=== PATIENT | female | born 1970 | race Caucasian/White ===

== ENCOUNTER → 2019-05-13 | Outpatient (CLI) | payer BC ==
--- NOTE | 2019-05-14 11:04 | RAD ---
EXAM DESCRIPTION: Lumbar Spine 3 Views CLINICAL HISTORY: RADICULOPATHY LUMBAR COMPARISON: None Available. TECHNIQUE: AP/lateral/coned-down lateral views lumbar spine. FINDINGS: Conventional five nonrib-bearing lumbar segments. The lumbar spine alignment is intact without significant listhesis. The vertebral body heights are relatively maintained. No displaced fracture or significantly appearing subluxation is seen. Mild to moderate multilevel degenerative changes with intervertebral disc height loss, endplate sclerosis and marginal osteophyte are most pronounced at L1-L2 and L2-L3. Mild lower lumbar spine facet degeneration. IMPRESSION: 1. No radiographic evidence of displaced lumbar spine fracture or significantly appearing subluxation. 2. Mild to moderate multilevel lumbar spine degenerative changes. Electronically signed by: Dell Cha DO 05/14/2019 11:02 AM CDT
== END ==
LOC: RAD 13:00
PROVIDERS: ATTEND Chiropractor
DX: M47.26 Other spondylosis with radiculopathy, lumbar region (principal)

== ENCOUNTER → 2019-06-23 | Outpatient (CLI) | payer OTHER ==
--- NOTE | 2019-06-24 09:02 | MRI ---
EXAM DESCRIPTION: MRI left knee CLINICAL HISTORY: ACL tear. Knee pain. COMPARISON: None. TECHNIQUE: Multiplanar, multisequence MR images of the left knee FINDINGS: Intraligamentous thin tubular ganglion within the ACL is evidence of remote interstitial low-grade partial tear. Small region of cystic change in the tibia at the ACL attachment. No acute ACL tear or ligament laxity PCL, MCL and fibular collateral ligaments are intact Biceps femoris, popliteus iliotibial band tendons are normal. Extensive subcutaneous soft tissue edema and swelling along the anterior lateral knee overlying the lateral retinaculum and iliotibial band primarily, soft tissue contusion without underlying ligament retinacular tear. Patellar and quadriceps tendons are normal Lateral patellar diffuse grade 3 chondrosis with grade 4/full-thickness chondrosis over about 1.5 x 1 cm. Underlying small region of subchondral cystic change and edema. Femoral trochlear chondral thinning along the lower apex and medial facet without full-thickness defect or subchondral marrow abnormality No medial meniscal tear. Medial femorotibial diffuse chondral thinning and mild surface irregularity. No full-thickness defect or subchondral marrow abnormality. Focal well delineated full-thickness chondral defect of the posterior weightbearing lateral femoral condyle over 9 x 6 mm. No subchondral marrow abnormality, coronal image 22, sagittal image 10. Diffuse grade 3 chondrosis of the middle and lateral posterior tibia with grade 4 chondral loss over approximately 8 x 9 mm. Subtle minimal subchondral edema. Mild lateral subluxation of the body the meniscus without a focal tear. Degenerative signal in the anterior tibial root attachment Tendons of the posterior medial knee are intact. Minimal/physiologic joint fluid. No intra-articular loose body IMPRESSION: Thin intraligamentous ganglion of the ACL as evidence of prior remote interstitial low-grade partial tear. 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
== END ==
LOC: MRI 12:58
PROVIDERS: ATTEND Nurse Practitioner
DX: M23.612 Other spontaneous disruption of anterior cruciate ligament of left knee (principal); M67.462 Ganglion, left knee; M94.8X6 Other specified disorders of cartilage, lower leg

== ENCOUNTER 2019-07-28 16:07 | Emergency (ER) | payer OTHER ==
[2019-07-28 16:20] VITALS: O2SAT 99
--- NOTE | 2019-07-28 16:20 | ED.PDOC ---
History of Present Illness - General Chief Complaint: Lower Extremity Injury Stated Complaint: left leg pain Time Seen by Provider: 07/28/19 16:13 Source: patient, RN notes reviewed, Vital Signs reviewed Exam Limitations: no limitations Additional Information: this is a 48-year-old female who presents to the ED with complaints of left knee pain. She has some chronic history of left knee pain and is scheduled to see Dr. Brewer out of [facility] for possible surgery next week. She states that she has an appointment next Friday. She had a recent MRI in the past month of the left knee revealing a remote ACL tear but nothing acute, as well as arthritic characteristics of the knee. She states that Dr. Brewer feels that she needs to have a knee replacement. She also states that she has a history of rheumatoid arthritis but is not on any treatment. She states that she was on methotrexate years ago but feels that due to the carcinogenic properties of arthritis medications she does not want to be on any. The patient reports that she was awakened with left knee pain in the photography spotter hours this morning. She denies having any trauma. She has been using a knee brace on the left knee and came in on crutches today. She is taking tramadol and Tylenol 3 with no relief. She denies having any recent fever or chills. No GI symptoms. - History of Present Illness Allergies/Adverse Reactions: Allergies Hydrocodone Allergy (Verified 07/28/19 16:13) Home Medications: Ambulatory Orders predniSONE 40 mg PO Q24HR #5 tab 07/28/19 Review of Systems - Review of Systems Constitutional: States: no symptoms reported. Denies: chills, fever Respiratory: States: no symptoms reported Cardiology: States: no symptoms reported Gastrointestinal/Abdominal: States: no symptoms reported Musculoskeletal: States: joint pain - left knee only, joint swelling Skin: States: no symptoms reported. Denies: change in color, rash Neurological: States: no symptoms reported Endocrine: States: no symptoms reported All other Systems: Reviewed and Negative Family Medical History - Family History Mother Family History: No Known Physical Exam - Physical Exam General Appearance: Alert, Anxious, Restless, Other - holding left knee, knee brace is off and crutches were used at time of presentation, Eyes, Ears, Nose, Throat: PERRL/EOMI Cardiovascular/Respiratory: no respiratory distress Leg: normal inspection, non-tender, no evidence of injury Knee: no evidence of injury, bone tenderness, limited ROM - limited flexion, feels best in extension, some increased warmth noted, no redness, no effusion is present, , pain, swelling Ankle: normal inspection, non-tender, no evidence of injury, normal ROM Foot: normal inspection, non-tender, no evidence of injury, normal ROM Neuro/Tendon: normal sensation Mental Status: alert, oriented x 3 Skin: normal color, warm/dry Progress - Progress Progress: 07/28/19 17:01 MDM: Patient with reported history of rheumatoid arthritis. Started having left knee pain out of the ordinary in the photography spotter hours without any trauma. May be all inflammatory in nature. She has been taking her pain relievers without much relief. We'll go ahead and start with steroids and give Toradol as well. She will have a sedimentation rate performed so that she can follow-up with her orthopedist and get a comparison if it is high. Would recommend follow-up with a PCP for further rheumatologic workup and treatment. 07/28/19 17:51 discussed results with the patient. She does not have a ride here. States that her pain is not a lot better currently. We cannot give her anything stronger without her having someone to drive her home. She understands that. She has a follow-up with her orthopedist next week and let him know about her sedimentation rate as well. We are going to continue with prednisone treatment to see if that will make a difference for her with the lack of trauma being involved and her pain increasing. No signs or symptoms of a septic joint. - Results/Orders Results/Orders: Laboratory Tests 07/28/19 16:37 ESR 3 Departure - Departure Clinical Impression: Knee pain, chronic Qualifiers: Laterality: left Qualified Code(s): M25.562 - Pain in left knee; G89.29 - Other chronic pain Time of Disposition: 17:53 Disposition: Discharge to Home or Self Care Condition: Good Departure Forms: ED Discharge - Pt. Copy, Patient Portal Self Enrollment Instructions: DI for Knee Pain Referrals: SABINO GILLILAND JR [Primary Care Provider] - 1-2 Weeks Prescriptions: predniSONE 40 mg PO Q24HR #5 tab Home Medications: Ambulatory Orders predniSONE 40 mg PO Q24HR #5 tab 07/28/19 Additional Instructions: keep follow-up with orthopedist. Would recommend to continue brace and crutches. Also continue tramadol and Tylenol 3 for pain control. Use prednisone as directed. Return to ED as needed. Would recommend a project management analyst if having to return.
[2019-07-28] MEDS ORDERED: KETOROLAC TROMETHAMINE INJ 60 MG/2 ML VIAL IM ONE (16:28)
[2019-07-28] MEDS ORDERED: predniSONE 20 MG TAB PO ONE (16:29)
[2019-07-28 18:11] VITALS: BP 128/81; TEMP 97
== END 2019-07-28 18:00 | disposition home or self-care (01) ==
LOC: ER 16:07
DX: M25.562 Pain in left knee (principal); G89.29 Other chronic pain; M06.9 Rheumatoid arthritis, unspecified; Z88.8 Allergy status to other drugs, medicaments and biological substances
CPT/HCPCS: 36415; 85651; J1885; J7512

== ENCOUNTER 2019-10-24 14:40 | Emergency (ER) | payer BC, OTHER ==
[2019-10-24] MEDS: SODIUM CHLORIDE 0.9% (FLUSH) 10 ML SYG IV PRN (15:25)
--- NOTE | 2019-10-24 15:34 | RAD ---
EXAM: Chest,1 View CLINICAL INDICATION: Weakness COMPARISON: There is no previous study for comparison. FINDINGS: A single view of the chest was obtained. The heart size is normal. The pulmonary vascularity is unremarkable. The lungs are clear. There is no consolidation, infiltrate, pleural effusion, or pneumothorax. IMPRESSION: No evidence of active pulmonary disease. Electronically signed by: Gabe Hernandez MD 10/24/2019 3:33 PM [facility]
--- NOTE | 2019-10-24 16:06 | ED.PDOC ---
History of Present Illness - General Chief Complaint: General Stated Complaint: weakness,dizziness,pain all over Time Seen by Provider: 10/24/19 14:41 Source: patient, RN notes reviewed, Vital Signs reviewed, family - Hand Model, RN/MD - Dr. Garcia her PCP, old records - Per Dr. Garica, her SOFIA was 1: 2000 - History of Present Illness Initial Comments: Patient is a 48-year-old white female who presents with generalized pain and weakness and an inability to care for herself at all. Patient has past medical history of lupus and they believe MS. Approximately 3 weeks ago patient had worsening strokelike symptoms and went to [place] for further evaluation and treatment. 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 Patient symptoms resolved in the hospital but she continued to be weak. After discharge she came back to [place] and has continued to decline. Patient complains of an aching burning pain all over her body and complete weakness of her upper extremities and lower extremities. Patient denies any difficulty breathing at this time. Patient denies any headaches, chest pain, shortness of breath, nausea, vomiting, diarrhea. Patient also denies any vaginal discharge or urinary pain. Timing/Duration: other - 3 weeks Severity: severe Improving Factors: nothing Worsening Factors: movement Associated Symptoms: loss of appetite, malaise, weakness Allergies/Adverse Reactions: Allergies NO KNOWN ALLERGY Allergy (Verified 10/24/19 15:15) Home Medications: Ambulatory Orders Alprazolam [Xanax] 1 mg PO TID 10/24/19 Aspirin [Aspirin Regular Strength] 325 mg PO DAILY 10/24/19 Atorvastatin Calcium [Lipitor] 20 mg PO BEDTIME 10/24/19 DULoxetine HCL [Cymbalta] 30 mg PO DAILY 10/24/19 HYDROcodone 10MG/APAP 325MG [[place] 10/325] 1 tab PO PRN 10/24/19 Levothyroxine Sodium 125 mcg PO DAILY 10/24/19 Pregabalin 75 mg PO BID 10/24/19 Tramadol HCl 1 - 2 mg PO BID PRN 10/24/19 Review of Systems - Review of Systems Constitutional: States: see HPI, malaise, weakness. Denies: chills, fever EENTM: States: see HPI, blurred vision. Denies: double vision, ear pain, nose congestion, throat pain, throat swelling Respiratory: States: see HPI, short of breath. Denies: cough, orthopnea, stridor, wheezing Cardiology: States: no symptoms reported. Denies: chest pain, palpitations, syncope Gastrointestinal/Abdominal: States: no symptoms reported. Denies: abdominal pain, constipation, diarrhea, nausea, vomiting Genitourinary: States: no symptoms reported. Denies: discharge, dysuria, frequency, pain Musculoskeletal: States: see HPI, back pain, joint pain, muscle pain, muscle stiffness. Denies: neck pain Skin: States: no symptoms reported. Denies: change in color, lumps, rash Neurological: States: see HPI, anxiety, numbness, tingling, weakness. Denies: pre-existing deficit Endocrine: States: no symptoms reported. Denies: flushing, intolerance to cold, intolerance to heat, increased hunger, increased thirst, increased urine, unexplained weight gain, unexplained weight loss Hematologic/Lymphatic: States: no symptoms reported. Denies: anemia, easy bleeding, easy bruising All other Systems: Reviewed and Negative Past Medical History (General) - Patient Medical History Hx Seizures: No Hx Stroke: No Hx Asthma: No Hx Congestive Heart Failure: No Hx Thyroid Disease: Yes Hx Diabetes: No Surgical History: Hysterectomy - Vaccination History Hx Influenza Vaccination: No Hx Pneumococcal Vaccination: No - Social History Hx Tobacco Use: Yes Family Medical History - Family History Mother Family History: No Known Physical Exam - Physical Exam General Appearance: Alert, Anxious, Obvious distress, Restless, Well Developed, Well Groomed, Well Hydrated, Well Nourished Eye Exam: bilateral normal Ears, Nose, Throat: hearing grossly normal, normal ENT inspection, normal pharynx Neck: non-tender, full range of motion, supple, normal inspection, other - Patient has a well-healed scar on the right neck. Respiratory: chest non-tender, lungs clear, normal breath sounds, no respiratory distress, no accessory muscle use Cardiovascular/Chest: normal peripheral pulses, regular rate, rhythm, no edema, no gallop, no JVD, no murmur Peripheral Pulses: radial,right: 2+, radial,left: 2+ Gastrointestinal/Abdominal: normal bowel sounds, non tender, soft, no organomegaly, no pulsatile mass Back Exam: normal inspection, no CVA tenderness, no vertebral tenderness Extremity: normal range of motion, normal inspection, no pedal edema, no calf tenderness, normal capillary refill, other - Generalized tenderness of her extremities. 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 10/24/19 17:36 Patient with continued generalized weakness and body aches. After discussion with Dr. Garcia, plan was made to transfer the patient to [facility] for further work-up by rheumatology, to include a possible MRI. I have discussed this with the patient and she voices understanding and agreement with the plan of care. Patient was accepted by Dr. Rodriguez. Plan transfer at this time. Theo Boss M.D. #[id number] - Results/Orders Results/Orders: 10/24/19 15:18 Sodium Chloride 0.9% (Flush) [Saline Flush Syringe] 3 ml IV PRN PRN 10/24/19 15:19 Pulse Oximetry Assessment DAILY 10/24/19 15:30 EKG STAT 10/24/19 17:13 Sodium Chloride 0.9% 1000ML [Ns 1000 ml] 1,000 ml IVS ONCE 10/25/19 09:00 Pulse Ox Daily Laboratory Results - last 24 hr 10/24/19 10/24/19 10/24/19 15:24 15:30 15:30 WBC 6.9 RBC 4.06 L Hgb 12.1 Hct 36.1 MCV 89.0 MCH 30.0 MCHC 33.7 RDW 12.4 Plt Count 294 MPV 8.6 Absolute Neuts (auto) 5.00 Absolute Lymphs (auto) 1.40 Absolute Monos (auto) 0.40 Absolute Eos (auto) 0.10 Absolute Basos (auto) 0.10 Neutrophils % 72.6 Lymphocytes % 20.0 Monocytes % 5.7 Eosinophils % 0.8 L Basophils % 0.9 ESR 16 PT 9.9 INR 1.00 PTT (SP) 25.4 Sodium 136 Potassium 3.5 L Chloride 103 Carbon Dioxide 24 Anion Gap 12.5 BUN 25 H Creatinine 0.56 L BUN/Creatinine Ratio 44.6 H Random Glucose 118 H Serum Osmolality 277.4 Calcium 9.4 Magnesium 1.9 Total Bilirubin 0.7 Direct Bilirubin < 0.1 Indirect Bilirubin 0.6 AST 22 ALT 27 Alkaline Phosphatase 80 Creatine Kinase 68 CK-MB (CK-2) 2.6 CK-MB (CK-2) % Not Reportable Troponin I < 0.02 C-Reactive Protein 0.5 Serum Total Protein 7.0 Albumin 3.9 Urine Color Urine Appearance Urine pH Ur Specific [place] Urine Protein Urine Glucose (UA) Urine Ketones Urine Blood Urine Nitrite Urine Bilirubin Urine Urobilinogen Ur Leukocyte Esterase Urine RBC Urine WBC Ur Epithelial Cells Urine Bacteria 10/24/19 16:06 WBC RBC Hgb Hct MCV MCH MCHC RDW Plt Count MPV Absolute Neuts (auto) Absolute Lymphs (auto) Absolute Monos (auto) Absolute Eos (auto) Absolute Basos (auto) Neutrophils % Lymphocytes % Monocytes % Eosinophils % Basophils % ESR PT INR PTT (SP) Sodium Potassium Chloride Carbon Dioxide Anion Gap BUN Creatinine BUN/Creatinine Ratio Random Glucose Serum Osmolality Calcium Magnesium Total Bilirubin Direct Bilirubin Indirect Bilirubin AST ALT Alkaline Phosphatase Creatine Kinase CK-MB (CK-2) CK-MB (CK-2) % Troponin I C-Reactive Protein Serum Total Protein Albumin Urine Color Yellow Urine Appearance Clear Urine pH 6.5 Ur Specific [place] 1.025 Urine Protein Negative Urine Glucose (UA) Negative Urine Ketones Negative Urine Blood Negative Urine Nitrite Negative Urine Bilirubin Negative Urine Urobilinogen 0.2 Ur Leukocyte Esterase Negative Urine RBC 0-1 Urine WBC 0-1 Ur Epithelial Cells 0 Urine Bacteria 0 Departure - Departure Clinical Impression: Generalized weakness, Generalized body aches, Generalized muscle weakness Time of Disposition: 17:52 Disposition: Transfer to Hospital Condition: Fair Departure Forms: ED Discharge - Pt. Copy, Patient Portal Self Enrollment Referrals: JODY GARCIA [Primary Care Provider] - 1-2 Weeks Home Medications: Ambulatory Orders Alprazolam [Xanax] 1 mg PO TID 10/24/19 Aspirin [Aspirin Regular Strength] 325 mg PO DAILY 10/24/19 Atorvastatin Calcium [Lipitor] 20 mg PO BEDTIME 10/24/19 DULoxetine HCL [Cymbalta] 30 mg PO DAILY 10/24/19 HYDROcodone 10MG/APAP 325MG [[place] 10/325] 1 tab PO PRN 10/24/19 Levothyroxine Sodium 125 mcg PO DAILY 10/24/19 Pregabalin 75 mg PO BID 10/24/19 Tramadol HCl 1 - 2 mg PO BID PRN 10/24/19 Transfer to Outside Facility - Transfer Information Decision to Transfer Date: 10/24/19 Decision to Transfer Time: 16:30 Reason for Transfer: required specialist not available Accepting Facility: [facility]
[2019-10-24] MEDS: ONDANSETRON INJ 4 MG/2 ML VIAL IV ONE (16:34)
[2019-10-24] MEDS: HYDROmorphone HCL INJ 2 MG/ML VIAL IV ONE ×2 (16:36→18:01)
[2019-10-24] MEDS: SODIUM CHLORIDE 0.9% 1000ML 1,000 ML IVS ONE (17:19)
[2019-10-24 18:11] VITALS: BP 92/51; TEMP 98.5; O2SAT 93
== END 2019-10-24 18:15 | disposition short-term general hospital (02) ==
LOC: ER 14:40
DX: R53.1 Weakness (principal); M32.19 Other organ or system involvement in systemic lupus erythematosus; R52 Pain, unspecified; R20.2 Paresthesia of skin; E07.9 Disorder of thyroid, unspecified; Z87.891 Personal history of nicotine dependence; Z79.82 Long term (current) use of aspirin; Z79.899 Other long term (current) drug therapy
CPT/HCPCS: 36415; 71045; 80048; 80076; 81001; 82550; 82553; 84484; 85025; 85610; 85651; 85730; 86140; 93005; J1170; J2405; J7030